=== PATIENT | female | born 1960 | race Caucasian/White ===

== ENCOUNTER → 2022-03-22 | Outpatient (CLI) | payer OTHER ==
--- NOTE | 2022-03-22 14:23 | CT ---
EXAMINATION TYPE: CT right knee - [facility] Protocol DATE OF EXAM: 03/22/2022 COMPARISON: None HISTORY: osteoarthritis, pre op planning CT DLP: 640.3 mGycm Automated exposure control for dose reduction was used. Contrast: None Technique: Anthony technique was utilized for planning for presurgical evaluation FINDINGS: Axial images were obtained through the hips ankles and knees. Markers on the right. Reconstructed images are performed in coronal and sagittal planes. There is narrowing of the medial c ompartment joint space with some sclerosis right medial femoral and lateral femoral condylar spurring is present. Medial tibial plateau spurring is present. IMPRESSION: 1. DEGENERATIVE CHANGES WITHIN THE MEDIAL COMPARTMENT RIGHT KNEE. 2. CT FOR PRESURGICAL PLANNING
== END | disposition home or self-care (01) ==
LOC: RADCTMAIN 12:56
PROVIDERS: ATTEND Orthopaedic Surgery
DX: M17.11 Unilateral primary osteoarthritis, right knee (principal)

== ENCOUNTER → 2022-03-22 | Outpatient (CLI) | payer OTHER ==
[2022-03-22 15:22] LABS: INR 0.9 (<1.2); Partial Thromboplastin Time 26.5 sec (22.0-30.0); Prothrombin Time 10.3 sec (9.0-12.0)
[2022-03-22 18:08] LABS: HCT 45.8 % (37.2-46.3); HGB 14.6 g/dL (12.0-15.0); MCH 28.2 pg (27.0-32.0); MCHC 31.9 g/dL (32.0-37.0); MCV 88.4 fL (80.0-97.0); Mean Platelet Volume 11.4 fL (9.5-12.2); NRBC Per 100 WBC 0 /100 WBCS (0.0-0.0); Platelet Count 239 X 10*3/uL (140-440); RBC 5.18 X 10*6/uL (4.10-5.20); RDW 12.9 % (11.5-14.5); WBC 7.89 X 10*3/uL (4.50-10.00)
[2022-03-22 18:18] LABS: African American GFR (CKD) 49.2 (60.0-200.0); Albumin 4.2 g/dL (3.8-4.9); Albumin/Globulin Ratio 1.42 (1.60-3.17); BUN/Creat Ratio 11.5 Ratio (12.00-20.00); Blood Urea Nitrogen 15.3 mg/dL (9.0-27.0); Calcium 9.8 mg/dL (8.7-10.3); Carbon Dioxide 29.1 mmol/L (20.0-27.5); Globulin 2.9 g/dL (1.6-3.3); Non-African American GFR(CKD) 42.4 (60.0-200.0); Potassium 3.7 mmol/L (3.5-5.5); Total Bilirubin 0.3 mg/dL (0.30-1.20); Total Protein 7.1 g/dL (6.2-8.2)
[2022-03-22 20:41] LABS: Appearance,Urine Clear (Clear); Bilirubin,Urine Negative (Negative); Blood,Urine Negative (Negative); Color,Urine Yellow (Yellow); Ketones,Urine Negative (Negative); Nitrite,Urine Negative (Negative); PH, Urine 7.5 (5.0-8.0); Specific Gravity,Urine 1.016 (1.001-1.030); Urobilinogen,Urine 0.2 (0.2,1.0)
[2022-03-22 20:48] LABS: Bacteria,Urine None Seen /HPF (None Seen)
== END | disposition home or self-care (01) ==
LOC: LABPAT 13:54
PROVIDERS: ATTEND Orthopaedic Surgery
DX: Z01.818 Encounter for other preprocedural examination (principal); I48.91 Unspecified atrial fibrillation; M17.11 Unilateral primary osteoarthritis, right knee; R94.31 Abnormal electrocardiogram [ECG] [EKG]
CPT/HCPCS: 80053; 81001; 85027; 85610; 85730; 87070; 93005